=== PATIENT | female | born 1990 | race Caucasian/White ===

== ENCOUNTER 2024-05-03 11:43 | Inpatient (IN) | payer MEDICAID ==
[2024-05-03] MEDS: hydrALAZINE 20 MG/ML VIAL ONE (12:28)
[2024-05-03] MEDS: Magnesium Sulfate 20 gm/500 ml 20 GM/500 ML BAG ONE (12:49)
[2024-05-03 12:56] VITALS: BMI 34.0
[2024-05-03] MEDS ORDERED: HYDROcodone/Acetaminophen 5/325 mg Tablet PO PRN (13:58)
[2024-05-03] MEDS ORDERED: Diphenoxylate HCl/Atropine Tablet PO PRN (13:58)
[2024-05-03] MEDS ORDERED: Promethazine HCl 25 MG/ML VIAL IM PRN (13:58)
[2024-05-03] MEDS ORDERED: Labetalol HCl 100 MG/20 ML VIAL SLOW IVP PRN (13:58)
[2024-05-03] MEDS ORDERED: Lidocaine 1% (PF) 30 ML VIAL SC PRN (13:58)
[2024-05-03] MEDS ORDERED: Ibuprofen 800 MG TAB PO PRN (13:58)
[2024-05-03] MEDS ORDERED: hydrALAZINE 20 MG/ML VIAL SLOW IVP PRN ×2 (13:58)
[2024-05-03] MEDS ORDERED: Lorazepam 2 MG/ML VIAL SLOW IVP PRN (13:58)
[2024-05-03] MEDS ORDERED: Methylergonovine 0.2 MG/ML VIAL IM PRN (13:58)
[2024-05-03] MEDS ORDERED: Tranexamic Acid 1,000 MG/10 ML VIAL IVP PRN (13:58)
[2024-05-03] MEDS ORDERED: Calcium Gluc 4.6 MEQ/10 ML (100 MG/ML) SLOW IVP PRN (13:58)
[2024-05-03] MEDS ORDERED: Oxytocin 30 units/NS 500 ML 500 ML IV SCH (14:00)
[2024-05-03 14:01] LABS: Hematocrit 25.7 % (34.9-44.5); Hemoglobin 7.3 g/dL (12.0-15.5); Mean Corpuscular HGB CONC 28.4 g/dL (32.0-36.0); Mean Corpuscular Hemoglobin 19.1 pg (27.0-33.0); Mean Corpuscular Volume 67.1 fL (81.6-98.3); Platelet Count 343 10x3/uL (150-450); RBC Distribution Width 19.9 % (11.5-14.5); Red Blood Cell (RBC) Count 3.83 10x6/uL (3.90-5.03); White Blood Cell (WBC) Count 9.1 10x3/uL (3.5-10.5)
[2024-05-03 14:12] LABS: ALT (SGPT) Less than 7 U/L (8-55); AST (SGOT) 13 U/L (5-34); Albumin 2.5 g/dL (3.5-5.0); Alkaline Phosphatase 320 U/L (40-110); Anion Gap 14 mmol/L (10-20); BUN (Urea Nitrogen) 8 mg/dL (7.0-18.7); Bilirubin, Total 0.3 mg/dL (0.2-1.2); Calc. Creatinine Clearance 176 mL/min (70-130); Calcium 8.4 mg/dL (7.8-10.44); Carbon Dioxide 19 mmol/L (22-29); Chloride 107 mmol/L (98-107); Estimated GFR 120; Globulin 3.6 g/dL (2.4-3.5); Glucose 91 mg/dL (70-105); Potassium 4.4 mmol/L (3.5-5.1); Protein, Total 6.1 g/dL (6.0-8.3); Sodium 136 mmol/L (136-145)
[2024-05-03 14:31] LABS: Syphilis Antibody Nonreactive (Nonreactive); Syphilis Antibody Index 0.07 S/CO (<1.00 Non-Reactive)
[2024-05-03 14:34] LABS: HBsAg Index 0.23 S/CO (0-0.99); HIV (1/2) Antibody/Antigen Non-Reactive (NonReactive); HIV 1/2 INDEX 0.12 S/CO (<1.00); Hep B Surf Ag - L&D Non-Reactive S/CO (NonReactive)
[2024-05-03] MEDS: hydrALAZINE 20 MG/ML VIAL SLOW IVP PRN (14:42)
[2024-05-03] MEDS: Oxytocin 30 units/NS 500 ML 500 ML IV SCH ×2 (14:43→23:27)
[2024-05-03] MEDS: Labetalol HCl 100 MG TAB PO SCH (14:43)
[2024-05-03] MEDS: Lactated Ringer's 1,000 ML IV SCH (14:47)
[2024-05-03 15:19] LABS: Creatinine, Urine 61.18 mg/dL (47-110)
[2024-05-03] MEDS ORDERED: Moisturizing Cream (Eucerin) 113 GM JAR TOP PRN (15:30)
[2024-05-03] MEDS ORDERED: Ondansetron PF 4 MG/2 ML Vial IVP PRN (15:30)
[2024-05-03] MEDS ORDERED: Naloxone HCl 0.4 mg/ml Vial IVP PRN ×2 (15:30)
[2024-05-03] MEDS ORDERED: Lactated Ringer's 500 ML IV PRN (15:30)
[2024-05-03] MEDS ORDERED: Acetaminophen 325 MG TAB PO PRN (15:30)
[2024-05-03] MEDS ORDERED: ePHEDrine Sulfate 50 MG/10 ML VIAL SLOW IVP PRN (15:30)
[2024-05-03] MEDS ORDERED: Communication Order-Pharmacy FS SCH (15:30)
[2024-05-03] MEDS ORDERED: diphenhydrAMINE 50 MG/ML VIAL IVP PRN (15:30)
[2024-05-03] MEDS: fentaNYL 2 mcg/Ropivacaine 0.2% Epidural 100 ML CADD EPIDURAL SCH (15:43)
[2024-05-03] MEDS: fentaNYL/Ropivacaine Epidural 100 ML ONE (15:46)
[2024-05-03 20:32] LABS: Amphetamine Not Detected (NotDetected); Barbiturates Screen Not Detected (NotDetected); Benzodiazepine Screen Not Detected (NotDetected); Cocaine Metabolite Screen Not Detected (NotDetected); Methadone Not Detected (NotDetected); Methamphetamine Not Detected (NotDetected); Opiate Screen Not Detected (NotDetected); Oxycodone Screen Not Detected (NotDetected); Phencyclidine (PCP) Not Detected (NotDetected); THC/Cannabinoid Screen Detected (NotDetected); Tricyclic Screen Not Detected (NotDetected)
[2024-05-03] MEDS: Magnesium Sulfate 20 gm/500 ml 20 GM/500 ML BAG IVPB SCH (21:18)
[2024-05-03] MEDS: Acetaminophen 500 MG TAB PO PRN (21:50)
[2024-05-03] MEDS: Misoprostol 200 MCG TAB PR PRN (23:10)
[2024-05-03] MEDS: Carboprost 250 MCG/ML AMP IM PRN (23:10)
[2024-05-03] MEDS: Ondansetron PF 4 MG/2 ML Vial IVP PRN (23:36)
[2024-05-04] MEDS: Labetalol HCl 100 MG/20 ML VIAL SLOW IVP PRN (00:03)
[2024-05-04] MEDS: Promethazine HCl 25 MG/ML VIAL IM PRN (00:15)
[2024-05-04] MEDS ORDERED: hydrALAZINE 20 MG/ML VIAL SLOW IVP PRN (03:24)
[2024-05-04] MEDS ORDERED: HYDROcodone/Acetaminophen 5/325 mg Tablet PO PRN (03:24)
[2024-05-04] MEDS ORDERED: Benzocaine-Menthol 82.5 ML CAN TOP PRN (03:24)
[2024-05-04] MEDS ORDERED: Promethazine HCl 25 MG/ML VIAL IM PRN (03:24)
[2024-05-04] MEDS ORDERED: Milk Of Magnesia 30 ML UDCUP PO PRN (03:24)
[2024-05-04] MEDS ORDERED: Boostrix 0.5 ML (Tdap) VIAL (>/=7 yrs of age) IM ONE (03:24)
[2024-05-04] MEDS ORDERED: Lanolin Ointment 7 GM TUBE TOP PRN (03:24)
[2024-05-04] MEDS ORDERED: diphenhydrAMINE 25 MG CAP PO PRN (03:24)
[2024-05-04] MEDS ORDERED: Ondansetron PF 4 MG/2 ML Vial IVP PRN (03:24)
[2024-05-04] MEDS ORDERED: Bisacodyl 10 MG SUPP PR PRN (03:24)
[2024-05-04] MEDS: Labetalol HCl 100 MG/20 ML VIAL ONE (07:03)
[2024-05-04] MEDS: Ibuprofen 800 MG TAB PO SCH (07:06)
[2024-05-04] MEDS: Docusate 100 MG CAP PO SCH (08:14)
[2024-05-04] MEDS: Prenatal Vitamin 1 TAB PO SCH (08:14)
[2024-05-04] MEDS: Ferrous Sulfate 325 MG TAB PO SCH (08:14)
[2024-05-05] MEDS: Labetalol HCl 100 MG TAB PO SCH (00:36)
[2024-05-05 16:01] VITALS: BP 140/80; TEMP 98.2
== END 2024-05-05 16:45 | disposition left against medical advice (07) | DRG 807 ==
LOC: CSHLD 11:43 → CSHPP 05-04 20:20
PROVIDERS: ADMIT Family Medicine; ATTEND Family Medicine
PROC: 10E0XZZ Delivery of Products of Conception, External Approach (ICD-10-PCS; principal; 2024-05-03)
PROC: 10907ZC Drainage of Amniotic Fluid, Therapeutic from Products of Conception, Via Natural or Artificial Opening (ICD-10-PCS; 2024-05-03)
DX: O14.14 Severe pre-eclampsia complicating childbirth (principal); Z37.0 Single live birth; Z3A.39 39 weeks gestation of pregnancy; O62.2 Other uterine inertia; Z79.899 Other long term (current) drug therapy; Z88.1 Allergy status to other antibiotic agents
CPT/HCPCS: 36415; 51702; 80053; 80306; 82570; 84156; 85027; 86780; 86850; 86900; 86901; 87340; 87389; J0360; J2405; J2550; J2590; J3475; J3490; J7120